=== PATIENT | female | born 1970 | race Native Hawaiian/Other Pacific Islander ===

== ENCOUNTER 2017-11-30 06:13 | Emergency (ER) | payer BC ==
[2017-11-30 06:53] VITALS: BP 112/69; PULSE 78; RESP 18; TEMP 98.7; O2SAT 100
--- NOTE | 2017-11-30 07:18 | ED PDOC ---
HPI: Female Pain Time Seen by Provider: 11/30/17 07:13 Chief Complaint (Nursing): Female Genitourinary History Per: Patient Onset/Duration Of Symptoms: Other (1 week) Current Symptoms Are (Timing): Still Present Severity: Moderate Pain Scale Rating Of: 4 Quality Of Discomfort: Other Associated Symptoms: denies: Fever Additional Complaint(s): Cyst vaginal area x 1 week, painful, non-draining. Denies fever or abd pain. Past Medical History Vital Signs: Last Vital Signs Temp 98.7 F 11/30/17 06:32 Pulse 78 11/30/17 06:32 Resp 18 11/30/17 06:32 BP 112/69 11/30/17 06:32 Pulse Ox 100 11/30/17 06:32 - Medical History PMH: No Chronic Diseases - Family History Family History: States: Unknown Family Hx - Home Medications Home Medications: Ambulatory Orders Medication Instructions Recorded Sulfamethoxazole/Trimethoprim 1 tab PO BID #20 tab 11/30/17 [Bactrim DS 800 mg-160 mg] traMADol [Ultram] 50 mg PO Q8 #10 tab 11/30/17 - Allergies Allergies/Adverse Reactions: Allergies Allergy/AdvReac Type Severity Reaction Status Date / Time No Known Allergies Allergy Verified 11/30/17 06:50 Review of Systems Constitutional: Negative for: Fever Gastrointestinal: Negative for: Abdominal Pain Genitourinary Female: Positive for: Other (Vaginal pain). Negative for: Vaginal Discharge Physical Exam - Physical Exam Appears: Positive for: Non-toxic, No Acute Distress Gastrointestinal/Abdominal: Positive for: Bowel Sounds, Soft. Negative for: Tenderness Pelvic Exam: Negative for: External Exam Normal (1 cm cyst left labia minora, firm nonerythemetous. Non fluctuant. tender.) - ECG O2 Sat by Pulse Oximetry: 100 Disposition - Clinical Impression Clinical Impression: Bartholin cyst - Patient ED Disposition Is Patient to be Admitted: No - Disposition Referrals: FAMILY PROVIDER,NO [Primary Care Provider[facility] Disposition: Routine/Home Disposition Time: 07:30 Condition: FAIR Prescriptions: Sulfamethoxazole/Trimethoprim [Bactrim DS 800 mg-160 mg] 1 tab PO BID #20 tab traMADol [Ultram] 50 mg PO Q8 #10 tab Instructions: Bartholin's Gland Cyst Forms: [employer] ([place])
== END 2017-11-30 07:45 | disposition home or self-care (01) ==
LOC: H.ER 06:13
DX: N75.0 Cyst of Bartholin's gland (principal)